=== PATIENT | female | born 2000 | race Two or more races ===

== ENCOUNTER 2020-10-01 19:51 | Emergency (ER) | payer MEDICAID, OTHER ==
[~2020-10-01] VITALS: Ht 170.2 cm; Wt 59.0 kg
[2020-10-01] MEDS ORDERED: ACETAMINOPHEN 325MG TABLET PO ONE (20:30)
[2020-10-01 20:55] LABS: CLARITY URINE CLEAR (CLEAR); COLOR URINE YELLOW (YELLOW); KETONES URINE NEGATIVE (NEGATIVE); LEUKOCYTE ESTERASE URINE NEGATIVE (NEGATIVE); NITRITE URINE NEGATIVE (NEGATIVE); OCCULT BLOOD URINE NEGATIVE (NEGATIVE); PH URINE 7.5 (4.5-8.0); PROTEIN URINE 1+ (NEGATIVE); SPECIFIC GRAVITY URINE 1.031 (1.005-1.030)
[2020-10-01 21:54] LABS: BASOPHILS % 0.2 % (0.0-2.0); EOSINOPHILS % 0.2 % (0.0-5.0); HEMATOCRIT. 41.3 % (36.0-48.0); HEMOGLOBIN. 14.1 g/dL (12.0-16.0); LYMPHOCYTES % 16.6 % (20.0-50.0); MEAN CORPUSCULAR HEMOGLOBIN 32.1 pg (28.0-32.0); MEAN CORPUSCULAR VOLUME 93.8 fL (81.0-99.0); MEAN PLATELET VOLUME 9.2 fl (7.4-10.4); MONOCYTES % 7.6 % (2.0-8.0); NEUTROPHILS % 75.4 % (40.0-76.0); PLATELET 222 x1000/uL (130-400); RED BLOOD CELL COUNT 4.41 mill/uL (4.2-5.4); RED CELL DISTRIBUTION WIDTH 12.8 % (11.6-14.6)
[2020-10-01 22:00] LABS: CHLORIDE 109 mEq/L (98-107)
[2020-10-01 23:27] VITALS: BP 135/79
== END 2020-10-01 23:30 | disposition home or self-care (01) ==
LOC: ER 20:09
DX: R10.9 Unspecified abdominal pain (principal); R11.0 Nausea
CPT/HCPCS: 36415; 76705; 80053; 81003; 83690; 85025; 87635; 99284; C9803